=== PATIENT | female | born 1985 | race Caucasian/White ===

== ENCOUNTER 2022-08-12 05:51 | Emergency (ER) | payer MEDICAID ==
[~2022-08-12] VITALS: Ht 157.5 cm; Wt 74.8 kg
[2022-08-12 06:00] VITALS: BP_SYST 107
--- NOTE | 2022-08-12 06:00 | NUR ---
Pt BIB ALS, placed to ER bed 07, to gown, to monitor technician. Report given to COLBY Tatum.
--- NOTE | 2022-08-12 06:15 | NUR ---
Dr. Neff at bedside to assess pt.
--- NOTE | 2022-08-12 06:23 | NUR ---
Pt provides contact number for her , Malik Hernandez ([phone]). Called number, no answer, left message for call back.
[2022-08-12] MEDS ORDERED: levETIRAcetam 500 MG TABLET PO ONE (06:30)
--- NOTE | 2022-08-12 06:34 | NUR ---
Spoke with pt's , Malik Hernandez. He states that pt had a seizure at midnight and another around 0500. Pt became difficult to arouse, which has never happened before with previous seizures, prompting him to call 911. He states that pt takes Keppra 500 mg BID and is compliant with medication.
[2022-08-12 06:43] LABS: BASOPHILS # (AUTO) 0.1 K/uL (0.0-0.2); BASOPHILS % (AUTO) 0.9 % (0.0-2.0); EOSINOPHILS % (AUTO) 0.2 % (0.0-4.0); HEMATOCRIT 36.5 % (36-48); HEMOGLOBIN 12.2 g/dL (12.0-16.0); LYMPHOCYTES # (AUTO) 1.2 K/uL (1.0-5.5); LYMPHOCYTES % (AUTO) 17.4 % (20.5-51.5); MEAN CORPUSCULAR HEMOGLOBIN 29 pg (27-31); MEAN CORPUSCULAR HGB CONC 33 % (32-36); MEAN CORPUSCULAR VOLUME 86 fL (79.0-98.0); MONOCYTES # (AUTO) 0.4 K/uL (0.0-1.0); MONOCYTES % (AUTO) 5.3 % (1.7-9.3); NEUTROPHILS # (AUTO) 5.4 K/uL (1.8-7.7); NEUTROPHILS % (AUTO) 76.2 % (40.0-70.0); PLATELET COUNT (AUTO) 204 K/uL (130-430); RED BLOOD CELL COUNT(AUTO) 4.26 MIL/uL (4.2-6.2); RED CELL DISTRIBUTION WIDTH 14.6 % (9.0-15.0); WHITE BLOOD COUNT (AUTO) 7.1 K/uL (4.8-10.8)
[2022-08-12] MEDS ORDERED: levETIRAcetam 1,000 MG in NS 90 ML IV ONE (06:45)
[2022-08-12 06:51] LABS: CALCIUM 8.4 mg/dL (8.4-11.0); CREATININE 0.67 mg/dL (0.55-1.30)
[2022-08-12 06:55] LABS: ALBUMIN 3.4 g/dL (3.4-4.8); TOTAL BILIRUBIN 0.3 mg/dL (0.0-1.0)
--- NOTE | 2022-08-12 07:32 | NUR ---
Pt resting comfortably in bed AOX4 VSS Able to make needs known VSS Campbell continue to monitor
--- NOTE | 2022-08-12 08:20 | NUR ---
SPOKE WITH PTS AND HE STATES HE IS ON HIS WAY
--- NOTE | 2022-08-12 09:30 | NUR ---
Patient given written and verbal discharge instructions and verbalizes understanding. ER MD discussed with patient the results and treatment provided. Patient in stable condition. ID arm band removed. Rx of given. Patient educated on pain management and to follow up with PMD. Pain Scale 0. Opportunity for questions provided and answered. Medication side effect fact sheet provided.
[2022-08-12 09:46] VITALS: BP_SYST 112
== END 2022-08-12 09:30 | disposition home or self-care (01) ==
LOC: SED 05:51
DX: R56.9 Unspecified convulsions (principal); Z79.899 Other long term (current) drug therapy
CPT/HCPCS: 99284; 96365; 80053; 84703; 85025; 36415; 83605; J1953